=== PATIENT | female | born 1940 | race Caucasian/White ===

== ENCOUNTER 2017-08-05 17:45 | Emergency (ER) | payer MEDICARE, OTHER ==
[~2017-08-05 17:45] MED LIST: ADULT LOW DOSE81 MG PO; BISCOLAX10 MG PR; CITALOPRAM HBR20 MG PO; DONEPEZIL HCL10 MG PO; FOSAMAX70 MG PO; HYDROXYZINE HCL25 MG PO; INVANZ 1 GM VIAL1 GM IV; KEFLEX CAP 500500 MG PO; LACTULOSE10 GM/151 PO; MULTIVITAMINS1 EAC1 PO; NAMENDA10 MG PO; NORVASC 5 MG TAB5 MG PO; TYLENOL 500 MG500 MG PO; VITAMIN B-121000 MCG PO; VITAMIN D31000 UNI1 PO; ZINC OXIDE28 GM TP
== END 2017-08-05 22:30 | disposition home or self-care (01) ==
LOC: ER1 17:45
DX: S51.812A Laceration without foreign body of left forearm, initial encounter (principal); S80.01XA Contusion of right knee, initial encounter; S61.512A Laceration without foreign body of left wrist, initial encounter; S50.312A Abrasion of left elbow, initial encounter; I10 Essential (primary) hypertension; G30.9 Alzheimer's disease, unspecified; F02.80 Dementia in other diseases classified elsewhere, unspecified severity, without behavioral disturbance, psychotic disturbance, mood disturbance, and anxiety; W01.0XXA Fall on same level from slipping, tripping and stumbling without subsequent striking against object, initial encounter; Y92.128 Other place in nursing home as the place of occurrence of the external cause; Z88.1 Allergy status to other antibiotic agents; Z88.2 Allergy status to sulfonamides
CPT/HCPCS: 12002; 73080; 73110; 73564; 93005; 99284